=== PATIENT | female | born 2000 | race Caucasian/White ===

== ENCOUNTER 2022-12-04 08:26 | Day surgery (SDC) | payer OTHER ==
--- NOTE | 2022-12-04 08:03 | HP ---
DATE OF SURGERY: 12/04/2022 HISTORY OF PRESENT ILLNESS: The patient is a 22-year-old had elevated liver function test. No history of hepatitis. Ultrasound showed some chronic cholecystitis and sludge. PAST MEDICAL HISTORY: Polycystic ovarian syndrome. Constipation, headaches and migraines in the past. PAST SURGICAL HISTORY: Cysts removed in the past. Neck cyst drained in the past. MEDICATIONS: Junel. ALLERGIES: NKDA. FAMILY HISTORY: Negative in regards to this problem. SOCIAL HISTORY: No smoking or alcohol abuse. REVIEW OF SYSTEMS: Fourteen systems reviewed. No chest pain or palpitations. Other systems negative or noncontributory as above and per preadmission questionnaire. PHYSICAL EXAMINATION: Height 5'3". BMI 25. GENERAL: No acute distress. HEENT: Sclerae nonicteric. EOMI. Oral mucous membranes moist. NECK: No JVD. CHEST: Equal excursion, nonlabored breathing. CVS: Regular rate and rhythm. ABDOMEN: Soft. No peritoneal signs. EXTREMITIES: No significant edema. NEURO: Alert, oriented, moving extremities symmetrically. RECTAL: Deferred timed to endoscopy exam. PSYCH: Appropriate mood and affect. SKIN: Dry. IMPRESSION: Chronic cholecystitis, question symptomatic biliary sludge. Options were discussed including the possibility of cholecystectomy as she has gallbladder packed with sludge and stones and other reason of change in elevated liver function test. It is felt she has chronic cholecystitis. We had a long discussion. She prefers to go ahead and proceed. She was shown the risk sheet/gallbladder pamphlet, explained the procedure in detail including but not limited to bleeding or infection, risk of trocar injury or hernia, risk of bile leak, bile duct injury, retained stone or sludge possibly requiring further procedure either open or ERCP, general risk of anesthesia, deep venous thrombosis, pulmonary embolism, pneumonia, general risk of aches, pains, bloating, constipation and/or loose stools possibly even chronic in nature possibility of no improvement in preoperative symptoms, possible other etiology of liver problems possibly requiring further work, studies, endoscopy or other referral. She understands and agrees to the planned procedure. Will proceed with laparoscopic cholecystectomy with possible open as an outpatient.
[~2022-12-04 08:26] MED LIST: Sensorcaine 0.25% 10 ML ONE
[2022-12-04] MEDS ORDERED: Lactated Ringers 1,000 ML IV SCH (09:00)
[2022-12-04] MEDS ORDERED: MEFOXIN 2 GM PREMIX** 2 GM/50 ML ML IV SCH (09:00)
[2022-12-04] MEDS ORDERED: MEFOXIN 2 GM PREMIX** 2 GM/50 ML ML IV ONE (09:08)
[2022-12-04] MEDS ORDERED: Lactated Ringers 1,000 ML IV ONE ×2 (09:08→11:08)
[2022-12-04 09:12] LABS: HCG URINE TEST NEGATIVE (NEGATIVE)
[2022-12-04 09:23] LABS: Absolute Neutrophil Ct (ANC) 5.84 x10^3/uL (1.4-6.9); BASOPHIL % 0.4 % (0.0-0.4); Basophil (Absolute #) 0.03 x10^3/uL (0-0.4); Eosinophil % 2.4 % (0.00-5.0); Hematocrit 40.7 % (35-47); Hemoglobin 13.6 g/dL (12.0-16.0); IMMATURE GRAN # 0.03 x10^3u/L (0.00-0.03); IMMATURE GRAN % 0.4 % (0.00-0.4); Lymphocyte (Absolute #) 1.63 x10^3/uL (1.0-4.6); Lymphocytes % 19.7 % (24.0-44.0); Mean Cell Volume 91.3 fL (78-100); Mean Corpuscular Hemoglobin 30.5 pg (26-32); Mean Corpuscular Hgb Concent. 33.4 g/dL (32-36); Mean Platelet Volume 10.4 fL (7.5-11.0); Monocyte (Absolute #) 0.56 x10^3/uL (0.0-1.3); Monocytes % 6.8 % (0.0-12.0); Neutrophil % 70.3 % (36.0-66.0); Platelet Count 233 x10^3/uL (150-450); Red Blood Count 4.46 x10^6/uL (4.1-5.4); Red Cell Distribution Width 12.5 % (11.5-14.0); White Blood Count 8.3 x10^3/uL (4.0-10.5)
[2022-12-04 10:07] LABS: ALBUMIN 4.2 g/dL (3.5-5.0); ALKALINE PHOSPHATASE 49 U/L (38-126); ANION GAP 11.6 MEQ/L (5-15); BLOOD UREA NITROGEN 8 mg/dL (7-17); CHLORIDE 103 mmol/L (98-107); Calcium 8.9 mg/dL (8.4-10.2); Carbon Dioxide 26 mmol/L (22-30); Creatinine 1 0.69 mg/dL (0.52-1.04); EST GLOMERULAR FILTRATION RATE > 60.0 ML/MIN; Glucose 95 mg/dL (74-106); Potassium 3.9 mmol/L (3.5-5.1); SGOT/AST 24 U/L (14-36); SGPT/ALT 19 U/L (0-35); SODIUM 136 mmol/L (137-145); Total Protein 6.9 g/dL (6.3-8.2)
[2022-12-04] MEDS ORDERED: Transderm Scop 1.5MG Patch ONE (10:33)
[2022-12-04] MEDS ORDERED: DIPRIVAN 200 MG/20 ML IV ONE (10:38)
[2022-12-04] MEDS ORDERED: SUBLIMAZE 100 MCG/2 ML ONE ×2 (10:38→11:42)
[2022-12-04] MEDS ORDERED: Versed 2 MG/2 ML Injection ONE (10:38)
[2022-12-04] MEDS ORDERED: Decadron 4 MG INJ ONE (10:39)
[2022-12-04] MEDS ORDERED: Zemuron 100 MG/10 ML ONE (10:39)
[2022-12-04] MEDS ORDERED: Zofran 4 MG/2 ML VIAL ONE (10:39)
[2022-12-04] MEDS ORDERED: DEXMEDETOMIDINE 80 MCG/20ML-NS IV ONE (10:39)
[2022-12-04] MEDS ORDERED: Xylocaine-Mpf 2% 5 Ml Vial ONE (10:39)
[2022-12-04] MEDS ORDERED: OFIRMEV 100 ML IV ONE (10:56)
[2022-12-04] MEDS ORDERED: Ephedrine Sulfate 50 MG/ML ONE (11:05)
[2022-12-04] MEDS ORDERED: TORAdol 30 mg Injection ONE (11:47)
[2022-12-04] MEDS ORDERED: BRIDION 200MG/2ML IV ONE (11:47)
[2022-12-04] MEDS ORDERED: Hydromorphone 1 mg/ml Injection ONE (12:08)
[2022-12-04 13:08] VITALS: RESP 16
[2022-12-04 13:13] VITALS: BP 108/63; PULSE 80; TEMP 97.6; O2SAT 94
--- NOTE | 2022-12-05 09:12 | OP ---
SURGERY DATE/TIME: 12/04/2022 1121 PREOPERATIVE DIAGNOSIS: Acute exacerbation of chronic cholecystitis, biliary sludge. POSTOPERATIVE DIAGNOSIS: Acute exacerbation of chronic cholecystitis, biliary sludge. PROCEDURE: Laparoscopic cholecystectomy. SURGEON: Dr. Bay Castaneda. ANESTHESIA: General. ESTIMATED BLOOD LOSS: Minimal. INDICATIONS: As noted above. Risks and benefits explained in detail but not limited to and consent obtained. DESCRIPTION OF PROCEDURE AND FINDINGS: The patient was taken to the operating room. General anesthesia induced. Abdomen was prepped and draped in usual sterile fashion. After official time out and no disagreement with planned procedure, a transverse incision made in the supraumbilical area. Fascia grasped, pulled upward. Veress needle inserted and tested with saline. Pneumoperitoneum accomplished insufflating opening pressure of 0-15. An 11 mm bladeless port and camera were inserted and two - 5 mm right upper quadrant ports and 5 mm epigastric port. There is no evidence of any intraabdominal injury secondary to trocar insertion. The gallbladder is grasped, had some chronic inflammatory reaction. Dissected posterior, lateral to anterior fashion slowly and carefully the cystic duct, main cystic artery isolated until critical view obtained both anteriorly and posteriorly. Once this is accomplished, the cystic duct and cystic artery were clipped x3 and divided in the usual fashion. The gallbladder slowly and carefully dissected free. It was quite vascular. It required clipping additional two or three other little side branches off the cystic artery/cystic vein clipping directly on the gallbladder wall as necessary. The gallbladder is slowly and carefully dissected free. Clip on the gallbladder cystic duct stump popped off spilling a small amount of bile. It was reclipped. Copious amount of irrigation irrigating clear. The gallbladder is slowly and carefully dissected free. Just prior to releasing from final attachments to the anterior edge of the liver, the liver bed re-inspected. Clips noted to be in place in the cystic duct and cystic artery stumps. No signs of any active bleeding or bile leakage. It was felt there is no benefit of drain placement. The gallbladder was released from final attachments. Once the bag was available it was placed in the bag pulled up and out the 10/11 supraumbilical port and passed off. The fascial defect was closed with puncture closure device with #1 Vicryl. Copious amount of irrigation lateral to the liver and subhepatic space until clear. Liver bed re-inspected. Clips noted in place cystic duct and cystic artery stump. No signs of any active bleeding or bile leakage. Pneumoperitoneum decompressed. The wound irrigated out. Skin incision closed with 4-0 Vicryl. 0.25% Marcaine local injected along the skin incision fascial defect. The patient tolerated the procedure well. There were no immediate complications. Findings discussed with the family out in the waiting area.
== END 2022-12-04 13:27 | disposition home or self-care (01) ==
LOC: SDC 08:26
PROVIDERS: ATTEND Surgery
DX: K80.12 Calculus of gallbladder with acute and chronic cholecystitis without obstruction (principal)
CPT/HCPCS: 36415; 80053; 81025; 85025; J0694; J1100; J1170; J1885; J2250; J2405; J2704; J3010; A9270-GY